=== PATIENT | female | born 1935 | race African-American/Black ===

== ENCOUNTER 2019-07-07 11:19 | Inpatient (IN) | payer OTHER ==
[~2019-07-07] VITALS: Ht 163.8 cm; Wt 56.9 kg
[~2019-07-07 11:19] MED LIST: ADALAT CC30 M1 PO; HYD25 PO; LOTENSIN40 MG PO; [UNRECOGNIZED DRUG - CODE] PO
[2019-07-07 11:30] VITALS: Ht 163.8 cm; Wt 56.9 kg
--- NOTE | 2019-07-07 11:50 | NUR ---
PT PRESENTS TO ED WITH HER FRIEND C/O HBP GRANT PRESSURE LIKE TO FRONTAL AREA AND R SIDE OF HEAD. PT DENIES ANY INJURY DENIES ANY DIZZINESS AT THIS TIME. MILD BLURRY VISION. DENIES SOB, DENIES CP, +PMSC TO ALL EXT. PT REPORTS THIS HAS BEEN GOING ON FOR SEVERAL MONTHS SHE WAS BEEN SEEN BY PMD AND HER PMD TELLS HER "EVERYTHING IS OK". PT AAOX4 NO NEURO DEFICITS EQUAL AUTOMOTIVE METALSMITH AND PUSHES NO FACIAL ASSYMETRY NOTED. PT GOWNED PLACED ON FULL CM DR GRANDA AT BEDSIDE FOR MSE AWAITING MD ORDERS WILL MONITOR
--- NOTE | 2019-07-07 12:00 | NUR ---
PORTABLE CXR COMPLETED
--- NOTE | 2019-07-07 12:03 | NUR ---
PT MEDICATED PER MD ORDERS SEE EMAR
--- NOTE | 2019-07-07 12:03 | NUR ---
LAB AT BEDSIDE FOR BLOOD DRAW
--- NOTE | 2019-07-07 12:10 | NUR ---
PT IN CT
[2019-07-07 12:14] LABS: BASOPHIL % 0.7 % (0-2); PLATELET COUNT 272 x10^3mcL (130-400); RED CELL DISTRIBUTION WIDTH 14.2 % (11.5-14.5)
[2019-07-07 12:30] LABS: CALCIUM 10.3 mg/dL (8.5-10.1); CARBON DIOXIDE 27.9 mmol/L (21-32); CHLORIDE SERUM 103 mmol/L (98-107); GLUCOSE SERUM 105 mg/dL (74-106); POTASSIUM SERUM 3.9 mmol/L (3.5-5.1); SODIUM SERUM 140 mmol/L (136-145)
[2019-07-07 12:34] LABS: ALKALINE PHOSPHATASE 59 U/L (46-116); ALT/SGPT 20 U/L (14-59); AST/SGOT 11 U/L (15-37); BILIRUBIN TOTAL 0.25 mg/dL (0.20-1.00); LIPASE 78 IU/L (73-393); TOTAL PROTEIN, SERUM 7.5 g/dL (6.4-8.2)
--- NOTE | 2019-07-07 12:58 | NUR ---
PT MEDICATED PER MD ORDERS SEE EMAR
--- NOTE | 2019-07-07 12:59 | NUR ---
PT AMBULATORY TO BATHROOM
--- NOTE | 2019-07-07 13:11 | NUR ---
POC DISCUSSED WITH PT. PT CRYING "I DON'T KNOW WHAT'S WRONG WITH ME THEN" PT UPSET THAT SEVERAL HOSPITALS AND DOCTORS HAVE NOT BEEN ABLE TO KNOW WHY SHE HAS BEEN HAVING GRANT'S. PTS FRIEND AT BEDSIDE CONCERNED FOR PT, DR GRANDA ADVISED PT WE COULD ADMIT HER OVERNIGHT FOR FURTHER EVAL. PT OK TO SEE FOR ADMISSION
[2019-07-07] MEDS ORDERED: NOR10 PO (13:51)
[2019-07-07] MEDS ORDERED: ATENOLOL25 MG (13:52)
--- NOTE | 2019-07-07 14:00 | NUR ---
REPORT CALLED TO BHAVESH, ALL QUESTIONS ADDRESSED AT THIS TIME.
--- NOTE | 2019-07-07 14:30 | NUR ---
PT TRANSPORTED TO TELE FLOOR VIA GURNEY ON PORTABLE CM NO DISTRESS IN STABLE CONDITION BY KATHRINE SOSA AND ADRIEN EMT. CARE OF PT RESUMED BY YIELD CLERK
--- NOTE | 2019-07-07 14:46 | NUR ---
RECEIVED PATIENT FROM ER VIA SPIKE ARIZA/O Aaron, RESOURCE RN AT BEDSIDE OBTAIN HISTORY, NO DISTRESS NOTED. CHECK ORDER AND DISCUSS POC.
[2019-07-07 14:53] VITALS: BP 162/52
--- NOTE | 2019-07-07 15:03 | NUR ---
RECEIVED FROM ER TRANSPORTED VIA GUERNEY. AWAKE AND ALERT, ORIENTED TO NAME, PLACE, TIME AND SITUATION. SPEECH CLEAR AND APPROPRIATE. BREATHING EVEN AND UNLABORED ON ROOM AIR. ABLE TO MAKE NEEDS KNOWN. STATED FELT MOUTH WAS DRY. SALINE LOCK TO RIGHT AC. AMBULATORY WITH STEADY GAIT. ADMISSION HISTORY AND ASSESSMENT DONE. ORIENTED TO ROOM ENVIRONMENT, INSTRUCTED ON USE OF CALL LIGHT TO CALL FOR ASSISTANCE, PLACED WITHIN EASY REACH. ENDORSED TO NURSE OSPINA
--- NOTE | 2019-07-07 15:12 | NUR ---
CALLED DR. BARKSDALE FOR ORDERS PER DR. BARKSDALE WILL PLACE NEW ORDERS.
[2019-07-07 16:19] VITALS: BP 176/63
--- NOTE | 2019-07-07 17:24 | NUR ---
PATIENT RESTING IN BED WITH DTR AT BEDSIDE, DR. PONCE SEEN PATIENT EXAM AND DISCUSS PLAN WITH PATIENT, PLAN ECHO, US CAROTID, AND US ABDOMEN FOR TENDERNESS UPON PALPATED. CATAPRES 0.1MG PO GIVEN FOR BP 176/63, HR 54. NEEDS MET. CALL LIGHT WITHIN REACH.
[2019-07-07 18:22] VITALS: BP 124/50
--- NOTE | 2019-07-07 18:23 | NUR ---
PATIENT FINISH CAN DINNER, INFORM PATIENT NOTHING TO EAT OR DRINK UNTIL CT ANGIO ABDOMEN COMPLETE TONIGHT. PT VERBALIZE UNDERSTAND. REASSESS BP 124/50 MAP 86 AND HR 52 POST CATAPRES. CONT TO MONITOR.
--- NOTE | 2019-07-07 19:05 | NUR ---
CARE ASSUMED FROM OUTGOING RN. PT RESTING COMFORTABLY IN BED. NO ACUTE DISTRESS NOTED. EVEN AND UNLABORED RESPIRATIONS ON RA. ON TELE# 7 READING SB 51 WITH DEPRESSED T WAVE, OCC PACS. IVL INTACT. DENIES ANY HEADACHE/PAIN AT THIS TIME. BED IN LOWEST POSITION. SIDE RAILS UPX2. CALL LIGHT WITHIN REACH. WILL CONTINUE TO MONITOR.
[2019-07-07 19:36] VITALS: BP 129/41
--- NOTE | 2019-07-07 21:24 | NUR ---
BEHAVIOR SPECIALIST AT BEDSIDE TO TRANSPORT PT DOWN FOR CT: ANGIO ABD.
--- NOTE | 2019-07-07 23:50 | NUR ---
MADE AWARE BY MT, PT HR SUSTAINING BETWEEN 43-44 BPM WITH LOWEST HR AT 39BPM, TELE READING SB WITH DEPRESSED ST,TWAVE, OCC PVC,PAC. PT LAYING IN BED. NO ACUTE DISTRESS. NO C/O CHEST PAIN/PRESSURE. DR. KRIS LEE. WILL CONTINUE TO MONITOR.
--- NOTE | 2019-07-08 00:30 | NUR ---
HR AT THIS TIME 55BPM. PT AWAKE. NO C/O PAIN OR SOB. WILL CONTINUE TO MONITOR.
--- NOTE | 2019-07-08 00:58 | NUR ---
PT AMBULATED AROUND THE HALLS WITH SLOW STEADY GAIT. NO ACUTE DISTRESS NOTED. PT TOLERATED WELL. HR: 57BPM. WILL CONTINUE TO MONITOR.
[2019-07-08 04:59] VITALS: BP 157/50
--- NOTE | 2019-07-08 06:00 | NUR ---
PT AMBULATING THE HALLS WITH STEADY GAIT. NO ACUTE DISTRESS NOTED. HR IN THE 50'S WHILE AMBULATING. WILL CONTINUE TO MONITOR.
--- NOTE | 2019-07-08 06:07 | NUR ---
DR. PONCE REACHED, INFORMED ABOUT PT RESTING HR AT 43-44BPM, AM BP OF 157/50 WITH HR OF 43. STATES OK TO ADMINISTER HYDRALIZINE PO. HOLD LABETALOL AND CLONIDINE. WILL CONTINUE TO MONITOR AND ENDORSE TO ONCOMING SHIFT.
--- NOTE | 2019-07-08 06:41 | NUR ---
PT SLEPT COMFORTABLY IN INTERVALS THROUGHOUT THE SHIFT. NO C/O HEADACHE/PAIN. ON TELE#7 READING SB WITH DEPRESSED ST,TWAVE, OCC PAC,PVC WITH HR SUSTAINED AT 43-44BPM LOW 39BPM. DR. PONCE MADE AWARE. ALL NEEDS TENDED TO AND MET. LABETOLOL HELD. PER DR PONCE, HOLD LABETOLOL AND CLONIDINE. BED IN LOWEST POSITION. SIDE RAILS UPX2. CALL LIGHT WITHIN REACH. WILL ENDORSE TO ONCOMING SHIFT.
[2019-07-08 06:56] LABS: CHOLESTEROL/HDL RATIO 2.4
--- NOTE | 2019-07-08 08:00 | NUR ---
SHIFT ASSESSMENT DONE. PATIENT A/A/OX4; CLEAR SPEECH. DENIED HEADACHE NOW. B/P = 132/42; TELE#7; SB; HR = 47-53/MIN; DENIED CHEST PAIN. NO RESP DSITRESS ON RA. AMBULATED ON STEADY GAIT. TOLERATED CARDIAC DIET BREAKFAST. IVHL'D TO RAC. SITE CLEAN. NO EDEMA NOTED. DENIED PAIN. CALL LIGHT IN REACH.
[2019-07-08 08:33] VITALS: BP 132/42
--- NOTE | 2019-07-08 09:30 | NUR ---
DR. BARKSDALE CAME TO SEE PATIENT.
[2019-07-08 12:19] VITALS: BP 149/45
--- NOTE | 2019-07-08 15:00 | NUR ---
DR. PONCE CAME TO SEE PATIENT. VERBRAL ORDER GIVEN TO SHAGGY, CHARGE NURSE - PATIENTWAS OK TO D/C TO HOME TODAY.
[2019-07-08 15:57] VITALS: BP 149/45
--- NOTE | 2019-07-08 16:00 | NUR ---
TELE ORDER OF D/C HOME RECEIVED.
[2019-07-08] MEDS ORDERED: CATAPRES0.1 MG PO (16:33)
[2019-07-08] MEDS ORDERED: APR10 PO (16:36)
[2019-07-08] MEDS ORDERED: TRA100 PO (16:36)
[2019-07-08] MEDS ORDERED: RANITIDINE HCL150 M1 PO (16:37)
[2019-07-08] MEDS ORDERED: MOM PO (16:39)
[2019-07-08 17:37] VITALS: BP 163/43
--- NOTE | 2019-07-08 18:14 | NUR ---
B/P = 163/43; P = 62; DENIED HEADACHE. PATIENT REFUSED TO HOME DUE TO B/P > 160. CLONIDINE 0.1MG PO GIVEN AT 1300. HYDRALAZINE 25MG PO GIVEN AT [address]. CALL[address] DR. BARKSDALE AND NOTIFIED. ORDER OF DISCHARGE TO HOME CANCELLED. CHARGE NURSE, IAN COON NOTIFIED.
--- NOTE | 2019-07-08 19:00 | NUR ---
IV D/C'D BEFORE DISCHARGE TO HOME. BUT PATIENT REFUSED TO GO HOME. NO IV ACCESS NOW. EDORSED CARE TO [facility] NURSE.
--- NOTE | 2019-07-08 19:30 | NUR ---
RECEIVED REPORT FROM DAY SHIFT RN. PT SITTING ON THE CHAIR. AA&O X4. NO SOB ON ROOM AIR. NO C/O PAIN. NO DISTRESS NOTED. NO IV ACCESS AT THIS TIME. WILL INSERT A NEW IV. SAFETY MEASURES IN PLACE. BED IN LOWEST POSITION. CALL LIGHT WITHIN REACH. INSTRUCTED PT TO USE THE CALL LIGHT FOR ASSISTANCE. CALL LIGHT WITHIN REACH.
[2019-07-08 21:07] VITALS: BP 151/43
--- NOTE | 2019-07-09 02:27 | NUR ---
PT RESTING WITH EYES CLOSED. BREATHING EVEN AND UNLABORED. NO DISTRESS NOTED. CALL LIGHT WITHIN REACH. WILL CONTINUE TO MONITOR.
--- NOTE | 2019-07-09 04:53 | NUR ---
PT RESTED AT LONG INTERVALS. NO SOB ON ROOM AIR. NO DISTRESS NOTED. SALINE LOCKED TO RFA. AMBULATES TO THE BATHROOM INDEPENDENTLY. SAFETY MEASURES MAINTAINED. WILL CONTINUE TO MONITOR AND ENDORSE CONTINUITY OF CARE TO ONCOMING RN.
[2019-07-09 06:09] VITALS: BP 174/60
--- NOTE | 2019-07-09 07:15 | NUR ---
RECEIVED PT. IN BED A/A/O X3. NO SOB, NO N/V NOTED. PT. DENIES ANY PAIN AT THIS TIME. IV SITE NOTED TO R FA. SCD TO BLE MAINTAINED. BED IN LOW POS., CALL LIGHT WITHIN REACH. SIDE RAILS UP X3.
[2019-07-09 07:34] VITALS: BP 166/57
[2019-07-09 12:30] VITALS: BP 162/59
--- NOTE | 2019-07-09 13:00 | NUR ---
PT. IS BEING SEEN BY DR. BARKSDALE. DR. BARKSDALE WAS MADE AWARE THAT PT.'S SBP IS STILL IN THE 160's. DR. BARKSDALE STATED " OK TO DISCHARGE PT. HOME."
--- NOTE | 2019-07-09 14:30 | NUR ---
D/C HOME INSTRUCTIONS GIVEN TO PT. WHO VERBALIZED UNDERSTANDING OF INSTRUCTIONS. IV H/L TO R FA REMOVED. PRESCRIPTIONS GIVEN. TELE. MONITOR #7 REMOVED AND RETURNED TO TELE. MONITOR STATION.
--- NOTE | 2019-07-09 15:54 | NUR ---
PT. IS BEING DISCHARGED IN STABLE CONDITION VIA WHEELCHAIR. ALL BELONGINGS SENT HOME WITH PT. UPON DISCHARGE. ACCOMPANIED BY HER DAUGHTER AT THE TIME OF DISCHARGE.
== END 2019-07-09 15:54 | disposition home or self-care (01) | DRG 305 ==
LOC: ED 11:19 → DU 13:18
PROVIDERS: Emergency Medicine; Internal Medicine Cardiovascular Disease; ADMIT Internal Medicine
DX: I16.1 Hypertensive emergency (principal); I65.22 Occlusion and stenosis of left carotid artery; M60.9 Myositis, unspecified; I35.0 Nonrheumatic aortic (valve) stenosis; R00.1 Bradycardia, unspecified; T44.7X5A Adverse effect of beta-adrenoreceptor antagonists, initial encounter; I73.9 Peripheral vascular disease, unspecified; K59.00 Constipation, unspecified; Z68.21 Body mass index [BMI] 21.0-21.9, adult; Y92.018 Other place in single-family (private) house as the place of occurrence of the external cause
CPT/HCPCS: 83880; 97116-GP; G0378; J0360; J1885; Q0092; Q9967

== ENCOUNTER 2019-08-02 21:33 | Emergency (ER) | payer OTHER ==
[~2019-08-02] VITALS: Ht 162.6 cm; Wt 57.6 kg
[~2019-08-02 21:33] MED LIST changes: +APR10 PO; +ATENOLOL25 MG; +CATAPRES0.1 MG PO; +MOM PO; +NOR10 PO; +RANITIDINE HCL150 M1 PO; +TRA100 PO
[2019-08-02 21:45] VITALS: Ht 162.6 cm; Wt 57.6 kg
[2019-08-02 23:08] LABS: BASOPHIL % 0.4 % (0-2); PLATELET COUNT 259 x10^3mcL (130-400); RED CELL DISTRIBUTION WIDTH 13.8 % (11.5-14.5)
[2019-08-02 23:23] LABS: CALCIUM 9.4 mg/dL (8.5-10.1); CARBON DIOXIDE 26.3 mmol/L (21-32); CHLORIDE SERUM 95 mmol/L (98-107); CREATININE SERUM 0.8 mg/dL (0.6-1.0); GLUCOSE SERUM 110 mg/dL (74-106); POTASSIUM SERUM 4.3 mmol/L (3.5-5.1); SODIUM SERUM 130 mmol/L (136-145)
[2019-08-02 23:28] LABS: ALBUMIN 3.7 g/dL (3.4-5.0); ALKALINE PHOSPHATASE 79 U/L (46-116); ALT/SGPT 24 U/L (14-59); AMYLASE 58 U/L (25-115); AST/SGOT 10 U/L (15-37); BILIRUBIN TOTAL 0.22 mg/dL (0.20-1.00); LIPASE 65 IU/L (73-393); TOTAL PROTEIN, SERUM 6.6 g/dL (6.4-8.2)
[2019-08-03 01:56] VITALS: BP 166/58
== END 2019-08-03 01:56 | disposition home or self-care (01) ==
LOC: ED 21:33
PROVIDERS: Student in an Organized Health Care Education/Training Program
DX: K59.00 Constipation, unspecified (principal); I10 Essential (primary) hypertension; Z90.710 Acquired absence of both cervix and uterus; Z88.8 Allergy status to other drugs, medicaments and biological substances
CPT/HCPCS: J2270; J2405; J7030